=== PATIENT | male | born 1960 | race Caucasian/White ===

== ENCOUNTER 2019-01-25 09:51 | Emergency (ER) | payer MEDICARE ==
[~2019-01-25] VITALS: Ht 167.6 cm; Wt 145.0 kg
[2019-01-25 10:31] LABS: BASOPHILS % 1.1 % (0.0-2.0); EOSINOPHILS % 1.5 % (0.0-5.0); HEMATOCRIT. 46.7 % (42.0-52.0); HEMOGLOBIN. 16.1 g/dL (14.0-18.0); LYMPHOCYTES % 24.3 % (20.0-50.0); MEAN CORPUSCULAR HEMOGLOBIN 28.9 pg (28.0-32.0); MEAN CORPUSCULAR VOLUME 83.8 fL (80.0-94.0); MEAN PLATELET VOLUME 9.1 fl (7.4-10.4); MONOCYTES % 5.5 % (2.0-8.0); NEUTROPHILS % 67.6 % (40.0-76.0); PLATELET 346 x1000/uL (130-400); RED BLOOD CELL COUNT 5.57 mill/uL (4.7-6.1); RED CELL DISTRIBUTION WIDTH 15.3 % (11.6-14.6)
[2019-01-25 10:43] LABS: CHLORIDE 109 mEq/L (98-107)
[2019-01-25 10:44] LABS: PROTHROMBIN TIME 10.4 sec (9.6-11.0)
[2019-01-25 10:48] LABS: ETHANOL BLOOD < 10 mg/dL
[2019-01-25 10:50] LABS: LDL CHOLESTEROL 135 mg/dL (5-100)
[2019-01-25] MEDS ORDERED: ASPIRIN 325MG EC TABLET PO ONE (12:00)
[2019-01-25 12:05] LABS: CLARITY URINE CLEAR (CLEAR); COLOR URINE YELLOW (YELLOW); KETONES URINE NEGATIVE (NEGATIVE); LEUKOCYTE ESTERASE URINE NEGATIVE (NEGATIVE); NITRITE URINE NEGATIVE (NEGATIVE); OCCULT BLOOD URINE NEGATIVE (NEGATIVE); PH URINE 7.5 (4.5-8.0); PROTEIN URINE NEGATIVE (NEGATIVE); SPECIFIC GRAVITY URINE 1.016 (1.005-1.030)
[2019-01-25 12:36] LABS: *AMPHETAMINES SCREEN URINE NEGATIVE (NEGATIVE); *BARBITURATES SCREEN URINE NEGATIVE (NEGATIVE); *BENZODIAZEPINES SCREEN URINE NEGATIVE (NEGATIVE); *COCAINE SCREEN URINE NEGATIVE (NEGATIVE)
[2019-01-25 12:37] LABS: CANNABINOID URINE SCREEN NEGATIVE (NEGATIVE); METHADONE URINE SCREEN NEGATIVE (NEGATIVE); OPIATES URINE SCREEN NEGATIVE (NEGATIVE); PHENCYCLIDINE URINE SCREEN NEGATIVE (NEGATIVE)
[2019-01-25 19:15] VITALS: BP 151/104
== END 2019-01-25 19:26 | disposition short-term general hospital (02) ==
LOC: ER 10:02 → CANBEDREQ 12:34 → ER 19:26
DX: I63.9 Cerebral infarction, unspecified (principal); E78.5 Hyperlipidemia, unspecified; F31.9 Bipolar disorder, unspecified
CPT/HCPCS: 36415; 71045; 80305; 80320; 81003; 82962; 83721; 83880; 84484; 93005; 99285; G0480

== ENCOUNTER 2019-04-23 14:13 | Emergency (ER) | payer MEDICARE ==
[~2019-04-23] VITALS: Ht 170.2 cm; Wt 98.0 kg
[2019-04-23] MEDS ORDERED: SODIUM CHLORIDE 0.9% 1,000 ML IV ONE (15:07)
[2019-04-23] MEDS ORDERED: FAMOTIDINE 20MG/2ML VIAL IV ONE (15:15)
[2019-04-23] MEDS: KETOROLAC 30MG/ML VIAL IV STA ×2 (15:19→15:20)
[2019-04-23 15:23] LABS: CLARITY URINE CLEAR (CLEAR); COLOR URINE YELLOW (YELLOW); KETONES URINE NEGATIVE (NEGATIVE); LEUKOCYTE ESTERASE URINE NEGATIVE (NEGATIVE); NITRITE URINE NEGATIVE (NEGATIVE); OCCULT BLOOD URINE NEGATIVE (NEGATIVE); PH URINE 6.5 (4.5-8.0); PROTEIN URINE NEGATIVE (NEGATIVE); SPECIFIC GRAVITY URINE 1.003 (1.005-1.030); UROBILINOGEN URINE 0.2 E.U./dL (0.2-1.0)
[2019-04-23 15:26] LABS: BASOPHILS % 0.2 % (0.0-2.0); EOSINOPHILS % 1.4 % (0.0-5.0); HEMOGLOBIN. 13.9 g/dL (14.0-18.0); LYMPHOCYTES % 22.8 % (20.0-50.0); MEAN CORPUSCULAR HEMOGLOBIN 28.5 pg (28.0-32.0); MEAN CORPUSCULAR VOLUME 83.8 fL (80.0-94.0); MEAN PLATELET VOLUME 8.6 fl (7.4-10.4); MONOCYTES % 7.4 % (2.0-8.0); NEUTROPHILS % 68.2 % (40.0-76.0); PLATELET 317 x1000/uL (130-400); RED BLOOD CELL COUNT 4.89 mill/uL (4.7-6.1); RED CELL DISTRIBUTION WIDTH 15.8 % (11.6-14.6)
[2019-04-23 15:30] LABS: CHLORIDE 110 mEq/L (98-107)
[2019-04-23 15:31] LABS: PARTIAL THROMBOPLASTIN TIME 26.7 sec (23.4-31.0); PROTHROMBIN TIME 10.5 sec (9.6-11.0)
[2019-04-23 17:14] VITALS: BP 169/100
== END 2019-04-23 17:54 | disposition home or self-care (01) ==
LOC: ER 14:23
DX: R10.9 Unspecified abdominal pain (principal); F31.9 Bipolar disorder, unspecified; I10 Essential (primary) hypertension; F17.200 Nicotine dependence, unspecified, uncomplicated; Z86.73 Personal history of transient ischemic attack (TIA), and cerebral infarction without residual deficits
CPT/HCPCS: 36415; 80053; 81003; 82270; 83690; 85025; 85610; 85730; 86850; 86900; 86901; 93005; 96374; 99284; J1885; J3490; J7030

== ENCOUNTER 2022-06-29 22:09 | Emergency (ER) | payer MEDICARE ==
[~2022-06-29] VITALS: Ht 172.7 cm; Wt 100.0 kg
[2022-06-29 22:25] VITALS: BP 132/76
[2022-06-29] MEDS ORDERED: ABIL5 MT (22:37)
[2022-06-30] MEDS ORDERED: ABIL5 MT (05:36)
== END 2022-06-30 00:44 | disposition home or self-care (01) ==
LOC: ER 22:09
DX: F31.9 Bipolar disorder, unspecified (principal); I10 Essential (primary) hypertension; Z86.73 Personal history of transient ischemic attack (TIA), and cerebral infarction without residual deficits
CPT/HCPCS: 99283